=== PATIENT | male | born 1990 | race Asian ===

== ENCOUNTER → 2024-10-02 08:52 | Outpatient (REF) | payer BC, SELFPAY | LOC: HWRAD 08:52 | PROVIDERS: ATTENDING PHYSICIAN Family Medicine; FAMILY PHYSICIAN Internal Medicine | DX: R10.10 Upper abdominal pain, unspecified (principal) | CPT/HCPCS: 76700 ==

== ENCOUNTER → 2024-11-04 10:46 | Outpatient (REF) | payer BC, SELFPAY | LOC: RAD 10:46 | PROVIDERS: ATTENDING PHYSICIAN Family Medicine; FAMILY PHYSICIAN Internal Medicine | DX: K86.89 Other specified diseases of pancreas (principal) | CPT/HCPCS: 74160; Q9967 ==